=== PATIENT | male | born 1950 | race Caucasian/White ===

== ENCOUNTER 2021-06-10 09:24 | Outpatient (REF) | payer MEDICARE, OTHER, SELFPAY ==
--- NOTE | 2021-06-10 16:16 | MHC.AU.ANR ---
Adult Audiological Evaluation Date of Visit: 06/10/21 Reason for Appointment: Audiological re-evaluation to monitor the status of Mr. Song's hearing loss. He has a known bilateral, high-frequency, sensorineural hearing loss. He does use amplification at this time. He notes his hearing seems to be gradually decreasing. Mr. Song notes difficulties hearing in the presence of background noise, such as at a restaurant, or when some one is speaking from a distance.. He denies any changes to his medical history since his last visit. Does patient feel they have a hearing loss?: Yes If Yes, Which Ear?: Both Ears When Was Hearing Difficulty First Noticed?: 20 years ago Has hearing been tested previously?: Yes Previous Hearing Test Results: [facility] [place], 12/08/2018- Normal hearing from 250-2000 Hz, sloping to a moderate high-frequency sensorineural hearing loss bilaterally. Hearing Handicap Inventory: HHIE SCORE: 8 Based on HHIE score, patient has: No perceived hearing handicap Ear History: Family History of Hearing Loss?: Yes: Mother History of occupational noise exposure?: Yes Medical History: Medical History: High cholesterol Medication List: Atorvastatin 10 mg Otoscopy: Right Ear: Unremarkable Left Ear: Unremarkable Tympanometry: Tympanometry performed due to: To assess integrity of the middle ear system Right Ear: Hypercompliant Middle Ear System (Type Ad) Left Ear: Normal Middle Ear System (Type A) Hearing Evaluation: Transducer(s) Used: Insert Earphones, Bone Conduction Method: Conventional Audiometry Stimuli Used: Pure Tones Right Ear: Description of Hearing: Normal hearing from 250-2000 Hz, sloping to a mild to moderately-severe sensorineural hearing loss from 6223-7737 Hz. Left Ear: Description of Hearing: Normal hearing from 250-2000 Hz, sloping to a mild to moderately-severe sensorineural hearing loss from 2676-3369 Hz. Speech Recognition Threshold (SRT): Method Used: Monitored Live Voice Stimuli Used: Spondee Words Right Ear: 10 dBHL Left Ear: 0 dBHL Word Discrimination: Method: Recorded Lists Word Lists Used: NU-6 Right Ear: 96% at 60 dBHL Left Ear: 100% at 60 dBHL QuickSIN: -1 dB SNR loss when presented binaurally at 60 dBHL, indicating normal [id number] understanding abilities. Comparison: Compared to the most recent evaluation: Hearing is stable. Recommendations: Audiological re-evaluation in one year. Hearing protection should be used when around loud noise. Discussed results of today's evaluation with Mr. Song. He is considered a borderline candidate for amplification. He deferred hearing aids at this time. Diagnosis: Primary Diagnosis: H90.3 Bilateral Sensorineural Hearing Loss Services Performed: Services Performed: Comprehensive Audiological Evaluation (CPT 93352) Tympanometry (CPT 62127) Signature: Provider: Jaquelin Mi, CCC-A
== END 2021-06-10 09:25 | disposition home or self-care (01) ==
LOC: HO.SH 09:24
PROVIDERS: Visit Provider Internal Medicine
DX: Z01.118 Encounter for examination of ears and hearing with other abnormal findings (principal); H90.3 Sensorineural hearing loss, bilateral
CPT/HCPCS: 92557; 92567

== ENCOUNTER 2023-10-13 08:51 | Outpatient (REF) | payer MEDICARE, OTHER, SELFPAY ==
--- NOTE | 2023-10-13 11:02 | MHC.AU.ANR ---
Adult Audiological Evaluation Date of Visit: 10/13/23 Reason for Appointment: Here for evaluation. Last tested 06/10/21. Reports hearing may be worse. Notes difficulty in restaurants/ noisy situations, trouble hearing at a distance. Denies tinnitus, vertigo, otologic concerns. Otoscopy: Right Ear: Completely occluded with cerumen Left Ear: Completely occluded with cerumen Tympanometry: Tympanometry performed due to: To determine if cerumen blockage is fully occluding canal(s) Right Ear: Small ear canal volume and non-compliant, consistent with occlusion Left Ear: Small ear canal volume and non-compliant, consistent with occlusion Recommendations: Did not continue with puretone testing today due to occluding cerumen. Discussed cerumen removal options. William is going to try drops, may contact PCP or walk in clinic. Return for evaluation following cerumen management. Diagnosis: Primary Diagnosis: H61.23 Impacted Cerumen, Bilateral Services Performed: Services Performed: Tympanometry (CPT 86016) Signature: Provider: Ari Stroud, OANH-A
== END 2023-10-13 08:52 | disposition home or self-care (01) ==
LOC: HO.SH 08:51
PROVIDERS: Visit Provider Internal Medicine
DX: Z01.118 Encounter for examination of ears and hearing with other abnormal findings (principal); H61.23 Impacted cerumen, bilateral
CPT/HCPCS: 92567

== ENCOUNTER 2023-10-20 08:54 | Outpatient (REF) | payer MEDICARE, OTHER, SELFPAY | END 2023-10-20 08:55 | disposition home or self-care (01) | LOC: HO.SH 08:54 | PROVIDERS: Visit Provider Internal Medicine | DX: Z13.89 Encounter for screening for other disorder (principal) ==

== ENCOUNTER 2023-10-30 08:27 | Outpatient (REF) | payer MEDICARE, OTHER, SELFPAY | END 2023-10-30 08:28 | disposition home or self-care (01) | LOC: HO.SH 08:27 | PROVIDERS: Visit Provider Internal Medicine | DX: Z01.118 Encounter for examination of ears and hearing with other abnormal findings (principal); H90.3 Sensorineural hearing loss, bilateral | CPT/HCPCS: 92557 ==